=== PATIENT | male | born 1975 | race Caucasian/White ===

== ENCOUNTER 2021-11-09 08:57 | Emergency (ER) | payer BC ==
[2021-11-09 09:34] LABS: HEMOGLOBIN 15.7 gm/dl (14.0-17.5); RED BLOOD COUNT 4.9 M/UL (4.20-5.50)
[2021-11-09 10:02] LABS: BUN/CREATININE RATIO 12 (0-10)
[2021-11-09] MEDS ORDERED: PERCOCET 5-3251 EACH PO (12:05)
[2021-11-09] MEDS ORDERED: ZOFRAN ODT 4 MG4 MG PO (12:05)
== END 2021-11-09 12:30 | disposition home or self-care (01) ==
LOC: ER1 08:57
PROVIDERS: Family Medicine
DX: N13.2 Hydronephrosis with renal and ureteral calculous obstruction (principal); I10 Essential (primary) hypertension; E11.9 Type 2 diabetes mellitus without complications; Z87.442 Personal history of urinary calculi; Z79.84 Long term (current) use of oral hypoglycemic drugs; Z79.01 Long term (current) use of anticoagulants
CPT/HCPCS: 80053; 81001; 85025; 96374; 96375; 99284; J2270; J2405